=== PATIENT | male | born 1975 | race Caucasian/White ===

== ENCOUNTER 2018-04-14 17:53 | Emergency (ER) | payer OTHER ==
--- NOTE | 2018-04-14 17:59 | PDOC ---
Rapid Medical Evaluation Time Seen by Provider: 04/14/18 17:55 Medical Evaluation: I have performed a brief in-person evaluation of this patient. The patient presents with a chief complaint of: right eye irritation with possible foreign body. Pt was washing a window yesterday with soap and water and feels like he got something in his eye Pertinent physical exam findings: right injected conjunctiva I have ordered the following: nothing The patient will proceed to the ED for further evaluation. Discharge Disposition - Diagnosis Irritation of eye - Referrals - Patient Instructions - Post Discharge Activity
[2018-04-14 18:04] VITALS: BP 157/109; PULSE 52; TEMP 98.3; BMI 26.4
--- NOTE | 2018-04-14 18:36 | PDOC ---
History of Present Illness - General Chief Complaint: Eye Problem Stated Complaint: EYE PROBLEM Time Seen by Provider: 04/14/18 17:55 History Source: Patient Exam Limitations: No Limitations - History of Present Illness Initial Comments: 04/14/18 18:31 Patient came to emergency department for evaluation of right eye redness and itchiness. States Last night was washing his windows at home, felt a splash to his eye. Washed immediately with lots of water and had a resultant itchiness to same. Denies visual changes, denies any drainage from eyes, denies any other injury or problem. No foreign body sensation. Was mildly painful. Timing/Duration: 24 hours Severity: mild Past History - Travel Traveled outside of the country in the last 30 days: No Close contact w/someone who was outside of country & ill: No - Past Medical History Allergies/Adverse Reactions: Allergies Allergy/AdvReac Type Severity Reaction Status Date / Time No Known Allergies Allergy Verified 04/14/18 17:59 Home Medications: Ambulatory Orders NK [No Known Home Medication] 04/14/18 - Suicide/Smoking/Psychosocial Hx Smoking History: Current some day smoker Number of Cigarettes Smoked Daily: 2 Information on smoking cessation initiated: No Hx Alcohol Use: Yes (occasionally) Drug/Substance Use Hx: No Review of Systems - Review of Systems Able to Perform ROS?: Yes Is the patient limited Ukrainian proficient: Yes Constitutional: Yes: Symptoms Reported, See HPI, Malaise. No: Fever, Loss of Appetite HEENTM: Yes: Symptoms Reported, See HPI, Eye Pain, Blurred Vision, Tearing, Nose Congestion. No: Ear Pain Respiratory: Yes: See HPI. No: Symptoms reported, Cough Integumentary: Yes: Symptoms Reported, See HPI All Other Systems: Reviewed and Negative *Physical Exam - Vital Signs Last Vital Signs Temp Pulse Resp BP Pulse Ox 98.3 F 52 L 16 157/109 98 04/14/18 17:59 04/14/18 17:59 04/14/18 17:59 04/14/18 17:59 04/14/18 17:59 - Physical Exam General Appearance: Yes: Nourished, Appropriately Dressed, Mild Distress HEENT: positive: LISSETTE, TMs Normal (congested but landmarks easily visualized), Pharynx Normal, Rhinorrhea, Other (right eye is injected, with erythematous conjunctiva. Visual acuity is 20/25 bilaterally, has tearing, but no photophobia and no obvious corneal defect. Unable to slit lamp examination for corneal abrasion/foreign body as hospital has no fluorescein stain.). negative : Normal ENT Inspection, Sinus Tenderness Neck: positive: Supple. negative: Tender Gastrointestinal/Abdominal: positive: Normal Bowel Sounds, Soft. negative: Tender Musculoskeletal: positive: Normal Inspection Extremity: positive: Normal Capillary Refill, Normal Inspection, Normal Range of Motion Integumentary: positive: Normal Color, Dry, Warm Neurologic: positive: pipe fitter II-XII NML intact, Fully Oriented, Alert, Normal Mood/ Affect, Normal Response Medical Decision Making - Medical Decision Making 04/14/18 19:25 ALLERGIC conjunctivitis, will treat with antihistamine eyedrops bilaterally. Encouraged to avoid rubbing eyes, may use cool compresses or cool washes/ irrigation as needed. Can follow-up with PMD or ophthalmology as needed. Understands to return to emergency department for worsened pain, visual changes , purulent drainage from eyes as needed *DC/Admit/Observation/Transfer Diagnosis at time of Disposition: Irritation of eye - Discharge Dispostion Disposition: HOME Condition at time of disposition: Stable Decision to Admit order: No - Referrals - Patient Instructions Printed Discharge Instructions: Allergies, Respiratory (Alternative Therapy) Additional Instructions: Rest, drink lots of fluids: Teas, water, soups Saltwater gargles. Consider humidifier in room at night Steamy showers/seem to face break up mucus Avoid contact with allergens, exposure to pollens, close windows on a windy day Lots of handwashing and good hygiene Continue [id number] medications for symptomatic relief- may use allergic eyedrops for itching I- look for brand names like Visine, Allergan and buy the Escapio version of same. -Of the same type of eyedrops for itching and burning of eyes. Continue antihistamines daily until pollen season is over; Zyrtec, Claritin, Karie during the daytime and Benadryl at nighttime as will make sleepy Tylenol or Motrin for fever and pain Followup with private physician in one to 2 days as needed Return to emergency department for worsened symptoms, fevers, dehydration - Post Discharge Activity Forms/Work/School Notes: Back to Work
== END 2018-04-14 19:01 | disposition home or self-care (01) ==
LOC: JERFT 17:53
DX: H10.11 Acute atopic conjunctivitis, right eye (principal)
CPT/HCPCS: 99281-25